=== PATIENT | male | born 1975 | race African-American/Black ===

== ENCOUNTER 2025-04-05 13:05 | Inpatient (IN) | payer SELFPAY ==
[~2025-04-05] VITALS: Ht 185.4 cm; Wt 88.5 kg
[2025-04-05 13:10] VITALS: O2SAT 94
[2025-04-05 13:56] LABS: BASOPHILS % 0.2 % (0.0-2.0); EOSINOPHILS % 0.2 % (0.0-5.0); HEMATOCRIT. 39.9 % (42.0-52.0); HEMOGLOBIN. 13.1 g/dL (14.0-18.0); LYMPHOCYTES % 16.0 % (20.0-50.0); MEAN PLATELET VOLUME 8.5 fl (7.4-10.4); MONOCYTES % 8.0 % (2.0-8.0); NEUTROPHILS % 75.6 % (40.0-76.0); PLATELET 203 x1000/uL (130-400); RED BLOOD CELL COUNT 4.27 mill/uL (4.7-6.1); RED CELL DISTRIBUTION WIDTH 14.2 % (11.6-14.6)
[2025-04-05 14:12] LABS: CREATININE 1.8 mg/dL (0.6-1.3); TROPONIN I HIGH SENSITIVITY 6 ng/L (3.0-53); UREA NITROGEN BLOOD 15 mg/dL (9-23)
[2025-04-05 14:13] LABS: ETHANOL BLOOD < 10 mg/dL (<10)
[2025-04-05 14:14] LABS: ASPARTATE AMINOTRANSFERASE 17 IU/L (<34); BILIRUBIN DIRECT 0.2 mg/dL (<=3.0); BILIRUBIN TOTAL 0.5 mg/dL (0.1-1.0); PROTEIN TOTAL 8.5 g/dL (6.0-8.3)
[2025-04-05 16:45] LABS: TROPONIN I HIGH SENSITIVITY 12 ng/L (3.0-53)
[2025-04-05] MEDS: HALOPERIDOL LACTATE 5MG/ML VIAL IM ONE (17:08)
[2025-04-05 18:35] VITALS: BP 139/82; PULSE 53; RESP 20; TEMP 36.6404
[2025-04-05] MEDS ORDERED: LORAZEPAM 2MG/ML UD SYRINGE IV PRN (18:45)
[2025-04-05] MEDS ORDERED: ACETAMINOPHEN 325MG TABLET PO PRN ×2 (18:45)
[2025-04-05] MEDS ORDERED: ONDANSETRON HCL 4MG/2ML INJ IV PRN (18:45)
[2025-04-05] MEDS ORDERED: CLONIDINE 0.1MG TABLET PO PRN (18:45)
[2025-04-05] MEDS ORDERED: GUAIFENESIN 200MG/10ML SUGAR FREE UDC PO PRN (18:45)
[2025-04-05] MEDS ORDERED: DEXTROSE 50% WATER 50ML SYRINGE IV PRN (18:45)
[2025-04-05 20:00] VITALS: BP 140/80; PULSE 45; RESP 18; TEMP 35.9; O2SAT 97
[2025-04-05] MEDS: FOLIC ACID 1 MG, THIAMINE HCL 100 MG, MVI, ADULT NO.1 10 ML in DEXTROSE 5% WATER 1,000 ML IV NR (20:04)
[2025-04-05] MEDS: INSULIN LISPRO 100 UNITS/ML SUBCUT SCH (20:37)
[2025-04-05] MEDS: BLOOD SUGAR DIAGNOSTIC STRIP TEST SCH (20:37)
[2025-04-05 22:10] LABS: CLARITY URINE CLEAR (CLEAR); COLOR URINE DARK YELLOW (YELLOW); GLUCOSE URINE NEGATIVE (NEGATIVE); KETONES URINE TRACE (NEGATIVE); LEUKOCYTE ESTERASE URINE NEGATIVE (NEGATIVE); NITRITE URINE NEGATIVE (NEGATIVE); OCCULT BLOOD URINE NEGATIVE (NEGATIVE); PH URINE 5.0 (4.5-8.0); PROTEIN URINE 1+ (NEGATIVE); SPECIFIC GRAVITY URINE 1.028 (1.005-1.030); UROBILINOGEN URINE 0.2 E.U./dL (0.2-1.0)
[2025-04-05 22:20] LABS: *AMPHETAMINES SCREEN URINE NEGATIVE (NEGATIVE); *BARBITURATES SCREEN URINE NEGATIVE (NEGATIVE); *BENZODIAZEPINES SCREEN URINE PRESUMPTIVE POSITIVE (NEGATIVE); *COCAINE SCREEN URINE PRESUMPTIVE POSITIVE (NEGATIVE); CANNABINOID URINE SCREEN PRESUMPTIVE POSITIVE (NEGATIVE); ECSTASY MDMA SCREEN URINE NEGATIVE (NEGATIVE); METHADONE URINE SCREEN NEGATIVE (NEGATIVE); OPIATES URINE SCREEN NEGATIVE (NEGATIVE); PHENCYCLIDINE URINE SCREEN PRESUMTIVE POSITIVE (NEGATIVE)
[2025-04-05 22:24] LABS: INR 1.1
[2025-04-05 22:31] LABS: BACTERIA URINE 1+; SQUAMOUS EPITHELIAL CELL URINE FEW /lpf (RARE/1+)
[2025-04-05 22:32] LABS: RBC URINE NONE SEEN /hpf (0-2); WBC URINE 0-2 /hpf (0-2)
[2025-04-05 22:46] LABS: T4 FREE 1.25 ng/dL (0.89-1.76)
[2025-04-05 22:47] LABS: ASPARTATE AMINOTRANSFERASE 34 IU/L (<34); BILIRUBIN DIRECT 0.2 mg/dL (<=3.0); BILIRUBIN TOTAL 0.6 mg/dL (0.1-1.0); PHOSPHORUS 3.1 mg/dL (2.5-4.9); PROTEIN TOTAL 7.9 g/dL (6.0-8.3)
[2025-04-05 23:23] LABS: CREATINE KINASE MB FRACTION 13.9 ng/mL (0.5-3.6); TROPONIN I HIGH SENSITIVITY 18.0 ng/L (3.0-53)
[2025-04-06] VITALS: BP_SYST 135; BP_SYST 141; BP_DIAS 65; PULSE 50; RESP 20; TEMP 35.7; TEMP 36.7
[2025-04-06 04:00] VITALS: BP 134/88; PULSE 82; RESP 18; TEMP 35.7; O2SAT 99
[2025-04-06] MEDS ORDERED: PANTOPRAZOLE 40MG DR TABLET PO SCH (07:40)
[2025-04-06] MEDS ORDERED: THIAMINE HCL 100 MG/1 ML 2ML VIAL IM SCH (09:00)
[2025-04-06] MEDS ORDERED: FOLIC ACID 1MG TABLET PO SCH (09:00)
[2025-04-06] MEDS ORDERED: MULTIVITAMINS,THER W-MINERALS TABLET PO SCH (09:00)
[2025-04-09] MEDS ORDERED: THIAMINE HCL 100MG TABLET PO SCH (09:00)
== END 2025-04-06 06:23 | disposition left against medical advice (07) | DRG 812 ==
LOC: ER 13:05 → EDBEDREQ 15:22 → EDBEDREQTM 15:22 → ENRESERV 16:00 → 7WST 18:41
PROVIDERS: ADMIT Internal Medicine; ATTEND Internal Medicine
DX: T50.901A Poisoning by unspecified drugs, medicaments and biological substances, accidental (unintentional), initial encounter (principal); G92.8 Other toxic encephalopathy; Z53.29 Procedure and treatment not carried out because of patient's decision for other reasons; Y92.89 Other specified places as the place of occurrence of the external cause
CPT/HCPCS: 36415; 71045; 80048; 80076; 80305; 80307; 80320; 80329; 81003; 82140; 82550; 82553; 82962; 83036; 83605; 83735; 83880; 83930; 83935; 84100; 84439; 84443; 84484; 85025; 93005; 99291; J1630; J3411; J3490; J7070; G0480